=== PATIENT | male | born 1965 | race Caucasian/White ===

== ENCOUNTER 2022-08-11 04:42 | Day surgery (SDC) | payer OTHER ==
[2022-08-05 13:03] VITALS: BMI 29.5
[2022-08-11 10:12] VITALS: TEMP 98
[2022-08-11 10:38] VITALS: PULSE 48
[2022-08-11 11:02] VITALS: BP 124/75; RESP 16
== END 2022-08-11 10:58 | disposition home or self-care (01) ==
LOC: JASU-ENDO 04:42
PROVIDERS: ATTEND Student in an Organized Health Care Education/Training Program
PROC: 0DBP8ZX Excision of Rectum, Via Natural or Artificial Opening Endoscopic, Diagnostic (ICD-10-PCS; principal; 2022-08-11 09:30)
DX: Z12.11 Encounter for screening for malignant neoplasm of colon (principal); K62.1 Rectal polyp; K64.8 Other hemorrhoids; K63.89 Other specified diseases of intestine
CPT/HCPCS: 88305-TC

== ENCOUNTER 2023-05-12 21:39 | Emergency (ER) | payer OTHER ==
[2023-05-12 21:56] VITALS: BP 147/84; PULSE 68; RESP 18; TEMP 98.2; BMI 28.5
[2023-05-13] MEDS ORDERED: ACETAMINOPHEN 325 MG TABLET (FP) ONE (00:30)
[2023-05-13] MEDS ORDERED: DIPHTH,PERTUSS(ACELL),TET 0.5 ML DISP.SYRIN IM ONE (00:30)
[2023-05-13] MEDS: DIPHTH,PERTUSS(ACELL),TET 0.5 ML DISP.SYRIN IM ONE (00:40)
[2023-05-13] MEDS: ACETAMINOPHEN 500 MG TABLET (FP) PO ONE (00:48)
== END 2023-05-13 00:50 | disposition left against medical advice (07) ==
LOC: JER 21:39
PROC: 3E0234Z Introduction of Serum, Toxoid and Vaccine into Muscle, Percutaneous Approach (ICD-10-PCS; principal; 2023-05-12)
DX: M79.645 Pain in left finger(s) (principal); R09.81 Nasal congestion; H92.02 Otalgia, left ear; R09.89 Other specified symptoms and signs involving the circulatory and respiratory systems
CPT/HCPCS: 73130-TC-LT-FY; 90471; 90715; 99283-25